=== PATIENT | female | born 1960 | race Caucasian/White ===

== ENCOUNTER → 2016-12-08 11:06 | Outpatient (CLI) | payer MEDICARE ==
[2014-12-23 08:08] VITALS: BMI 23.3
[~2016-12-08 11:06] MED LIST: BENAZEPRIL HCL10 MG; ESTRACE1 MG PO; HYDROCODONE-APA1 TAB PO; PRILOSEC20 MG PO; TOPROL XL50 MG PO; TRANXENE T-TAB7.5 MG PO; ZANAFLEX4 MG PO
== END | disposition home or self-care (01) ==
LOC: D.CT 11:06
DX: R91.1 Solitary pulmonary nodule (principal)

== ENCOUNTER 2017-07-08 09:49 | Emergency (ER) | payer MEDICARE ==
[2014-12-23 08:08] VITALS: BMI 23.3
[2017-07-08 10:33] LABS: APPEARANCE CLEAR (CLEAR); COLOR YELLOW (YELLOW); SPECIFIC GRAVITY 1.025 (1.005-1.020)
[2017-07-08 10:34] LABS: BILIRUBIN NEGATIVE (NEGATIVE); GLUCOSE NEGATIVE (NEGATIVE); KETONE NEGATIVE (NEGATIVE); NITRITE NEGATIVE (NEGATIVE); PROTEIN NEGATIVE (NEGATIVE); UROBILINOGEN NORMAL (NORMAL)
== END 2017-07-08 11:48 | disposition home or self-care (01) ==
LOC: D.ER 09:49
PROVIDERS: Emergency Medicine
DX: M54.30 Sciatica, unspecified side (principal); M62.838 Other muscle spasm; F17.200 Nicotine dependence, unspecified, uncomplicated

== ENCOUNTER → 2017-08-04 11:11 | Outpatient (CLI) | payer MEDICARE ==
[2014-12-23 08:08] VITALS: BMI 23.3
== END | disposition home or self-care (01) ==
LOC: D.CT 11:11
DX: R91.1 Solitary pulmonary nodule (principal)

== ENCOUNTER → 2017-11-21 08:44 | Outpatient (CLI) | payer MEDICARE ==
[2014-12-23 08:08] VITALS: BMI 23.3
== END | disposition home or self-care (01) ==
LOC: D.CT 08:44
DX: R10.30 Lower abdominal pain, unspecified (principal)

== ENCOUNTER → 2018-04-18 10:58 | Outpatient (CLI) | payer MEDICARE ==
[2014-12-23 08:08] VITALS: BMI 23.3
== END | disposition home or self-care (01) ==
LOC: D.CT 04-13 11:30
DX: R91.1 Solitary pulmonary nodule (principal)

== ENCOUNTER 2018-06-30 08:00 | Outpatient (CLI) | payer MEDICARE, MEDICAID ==
[2014-12-23 08:08] VITALS: BMI 23.3
== END 2018-06-30 09:00 | disposition home or self-care (01) ==
LOC: D.MAMMO 08:00
DX: Z12.31 Encounter for screening mammogram for malignant neoplasm of breast (principal)

== ENCOUNTER 2018-08-30 21:07 | Emergency (ER) | payer MEDICARE, MEDICAID ==
[~2018-08-30] VITALS: Ht 165.1 cm; Wt 69.1 kg
[2018-08-30 21:11] VITALS: BP 130/87; Ht 165.1 cm; Wt 69.1 kg
[2018-08-30 22:15] LABS: BASOPHILS 0.5 % (0-2); EOSINOPHILS 1.6 % (0-7); HEMATOCRIT 34.2 % (36.0-48.0); HEMOGLOBIN 11.3 g/dL (12-16); IMMATURE GRANULOCYTES 0.2 % (0-5); LYMPHOCYTES 35.8 % (15-50); MCH 29.9 pg (26.0-34.0); MCV 90.5 fL (80.0-100.0); MEAN PLATELET VOLUME 9.7 fL (7.4-10.4); MONOCYTES 7.9 % (2-11); PLATELET COUNT 251 10x3/uL (130-400); RBC 3.78 10x6/uL (4.00-5.40); RDW 13.9 % (11.5-14.5); WBC 12.3 10x3/uL (4.8-10.8)
[2018-08-30 22:30] LABS: ALBUMIN 3.4 g/dL (3.4-5.0); ALKALINE PHOSPHATASE 65 U/L (46-116); ALT (SGPT) 22 U/L (10-68); BILIRUBIN - TOTAL 0.16 mg/dL (0.2-1.3); CALC OSMOLALITY 281 mosm/kg (275-300); CALCIUM 8.1 mg/dL (8.5-10.1); CARBON DIOXIDE 26.1 mmol/L (21.0-32.0); CHLORIDE - SERUM 106 mmol/L (98-107); CREATININE - SERUM 0.8 mg/dL (0.6-1.3); GLUCOSE 98 mg/dL (74-106); POTASSIUM - SERUM 3.9 mmol/L (3.5-5.1); PROTEIN - SERUM 6.5 g/dL (6.4-8.2); SODIUM 140 mmol/L (136-145); UREA NITROGEN 22 mg/dL (7-18); eGFR NON AFRICAN AMERICAN 78 mL/min (90-120)
[2018-08-30 22:33] LABS: AMYLASE - SERUM 50 U/L (25-115); LIPASE 108 U/L (73-393); TROPONIN-I < 0.017 ng/mL (0.000-0.060)
[2018-08-30 22:35] LABS: APPEARANCE CLEAR (CLEAR); BILIRUBIN NEGATIVE (NEGATIVE); COLOR YELLOW (YELLOW); GLUCOSE 100 mg/dL (NEGATIVE); KETONE NEGATIVE (NEGATIVE); NITRITE NEGATIVE (NEGATIVE); PROTEIN NEGATIVE (NEGATIVE); UROBILINOGEN NORMAL (NORMAL)
== END 2018-08-31 02:52 | disposition home or self-care (01) ==
LOC: D.ER 21:07
PROVIDERS: Family Medicine
DX: R10.13 Epigastric pain (principal); F41.9 Anxiety disorder, unspecified; R11.0 Nausea

== ENCOUNTER → 2019-05-01 09:27 | Outpatient (CLI) | payer MEDICARE, MEDICAID ==
[2018-08-30 21:11] VITALS: BMI 25.3
== END | disposition home or self-care (01) ==
LOC: D.MRI 09:27
PROVIDERS: ATTEND Orthopaedic Surgery
DX: M54.12 Radiculopathy, cervical region (principal)

== ENCOUNTER 2019-06-26 10:18 | Emergency (ER) | payer MEDICARE, MEDICAID ==
[~2019-06-26] VITALS: Ht 165.1 cm; Wt 69.1 kg
[2019-06-26 10:21] VITALS: BP 148/75; Ht 165.1 cm; Wt 69.1 kg
[2019-06-26] MEDS ORDERED: KENALOG 0.1 % 115 GM TOPICAL (10:50)
== END 2019-06-26 11:08 | disposition home or self-care (01) ==
LOC: D.ER 10:18
DX: L25.9 Unspecified contact dermatitis, unspecified cause (principal); M79.7 Fibromyalgia; K21.9 Gastro-esophageal reflux disease without esophagitis